=== PATIENT | male | born 1975 | race Two or more races ===

== ENCOUNTER 2019-02-10 21:32 | Emergency (ER) | payer MEDICAID ==
[~2019-02-10] VITALS: Ht 162.6 cm; Wt 95.3 kg
--- NOTE | 2019-02-10 22:46 | NUR ---
BIBSELF C/O BODY PAIN AND L EYE REDNESS. PT HAD SYNCOPE EPIOSODE X1 DAY AGO FELL BACK AND HIT HIS HEAD, TO ER BED 3, VSS AWAITING MED EVAL
[2019-02-10 23:11] LABS: BASOPHILS # (AUTO) 0.1 /CMM (0.0-0.2); BASOPHILS % (AUTO) 1.2 % (0.0-2.0); EOSINOPHILS % (AUTO) 7.4 % (0.0-6.0); HEMATOCRIT 46 % (39-51); HEMOGLOBIN 15.8 g/dL (13.5-17.5); LYMPHOCYTES # (AUTO) 2.1 /CMM (0.8-4.8); MEAN CORPUSCULAR HGB CONC 34 g/dl (31.0-36.0); MEAN CORPUSCULAR VOLUME 85 fL (80-96); MONOCYTES # (AUTO) 0.8 /CMM (0.1-1.30); NEUTROPHILS # (AUTO) 4.9 /CMM (1.8-8.9); NEUTROPHILS % (AUTO) 57.4 % (43.0-81.0); PLATELET COUNT (AUTO) 386 /CMM (150-450); RED BLOOD CELL COUNT(AUTO) 5.45 MIL/uL (4.5-6.0); WHITE BLOOD COUNT (AUTO) 8.5 K/uL (4.3-11.0)
[2019-02-10 23:19] LABS: CALCIUM, SERUM 8.9 mg/dL (8.5-10.1); CARBON DIOXIDE 30 mmol/L (21-32); CHLORIDE 105 mmol/L (98-107); GLUCOSE 128 mg/dL (74-106); POTASSIUM 3.9 mmol/L (3.5-5.1); SODIUM SERUM 141 mmol/L (136-145); UREA NITROGEN, BLOOD 15 mg/dL (7-18)
--- NOTE | 2019-02-11 02:04 | NUR ---
Patient discharged to home in stable condition. Written and verbal after care instructions given. Patient verbalizes understanding of instruction.IV removed. Catheter intact and site benign. Pressure and 4x4 applied to site. No bleeding noted.Pt ambulatory with a steady gait
[2019-02-11 02:05] VITALS: BP 119/80
== END 2019-02-11 02:05 | disposition home or self-care (01) ==
LOC: ER 21:33
DX: S02.40DA Maxillary fracture, left side, initial encounter for closed fracture (principal); S02.85XA Fracture of orbit, unspecified, initial encounter for closed fracture; H11.32 Conjunctival hemorrhage, left eye; F17.200 Nicotine dependence, unspecified, uncomplicated; R55 Syncope and collapse; W07.XXXA Fall from chair, initial encounter; Y93.89 Activity, other specified; Y92.89 Other specified places as the place of occurrence of the external cause; Y99.8 Other external cause status
CPT/HCPCS: 36415; 70450-TC; 72125-TC; 80048-TC; 84484-TC; 85025-TC

== ENCOUNTER 2019-12-07 22:38 | Inpatient (IN) | payer MEDICAID ==
[~2019-12-07] VITALS: Ht 165.1 cm; Wt 95.7 kg
--- NOTE | 2019-12-07 22:47 | NUR ---
CALLED RT FOR BREATHING TX.
[2019-12-07] MEDS ORDERED: IPRATROPIUM NEB FS 0.5 MG/2.5 ML AMPUL.NEB ONE (22:59)
[2019-12-07] MEDS ORDERED: ALBUTEROL FS 2.5 MG/3 ML VIAL.NEB ONE (22:59)
[2019-12-07] MEDS ORDERED: IPRATROPIUM NEB FS 0.5 MG/2.5 ML AMPUL.NEB NEB ONE (23:00)
[2019-12-07] MEDS ORDERED: methylPREDNISolone SOD SUCC 125 MG/2ML VIAL IV ONE (23:00)
[2019-12-07] MEDS ORDERED: ALBUTEROL FS 2.5 MG/3 ML VIAL.NEB NEB ONE (23:00)
--- NOTE | 2019-12-07 23:02 | NUR ---
RT AT BEDSIDE FOR BREATHING TX.
--- NOTE | 2019-12-07 23:05 | NUR ---
CALLED LAB, AWARE BLOOD WAS DRAWN, READY FOR ENERGY AND SUSTAINABILITY MANAGER.
[2019-12-07] MEDS ORDERED: methylPREDNISolone SOD SUCC 125 MG/2ML VIAL ONE (23:06)
--- NOTE | 2019-12-07 23:21 | NUR ---
COVID SWAB COLLECTED AND SENT TO LAB.
[2019-12-07 23:38] LABS: BASOPHILS # (AUTO) 0.1 /CMM (0.0-0.2); BASOPHILS % (AUTO) 0.7 % (0.0-2.0); EOSINOPHILS % (AUTO) 13.6 % (0.0-6.0); HEMATOCRIT 47 % (39-51); HEMOGLOBIN 15.3 g/dL (13.5-17.5); LYMPHOCYTES # (AUTO) 2.1 /CMM (0.8-4.8); LYMPHOCYTES % (AUTO) 14.6 % (20.0-44.0); MEAN CORPUSCULAR HGB CONC 32 g/dl (31.0-36.0); MEAN CORPUSCULAR VOLUME 86 fL (80-96); MONOCYTES # (AUTO) 0.9 /CMM (0.1-1.30); MONOCYTES % (AUTO) 6.3 % (2.0-12.0); NEUTROPHILS # (AUTO) 9.4 /CMM (1.8-8.9); NEUTROPHILS % (AUTO) 64.8 % (43.0-81.0); PLATELET COUNT (AUTO) 462 /CMM (150-450); RED BLOOD CELL COUNT(AUTO) 5.53 MIL/uL (4.5-6.0); WHITE BLOOD COUNT (AUTO) 14.5 K/uL (4.3-11.0)
--- NOTE | 2019-12-07 23:46 | NUR ---
Rebecca gallegos in [facility] - 12/07/19 at 2347 by SELVIN 2ND COVID SWAB AND RSV COLLECTED. SENT TO LAB
[2019-12-07 23:47] LABS: CALCIUM, SERUM 8.2 mg/dL (8.5-10.1); CARBON DIOXIDE 32 mmol/L (21-32); CHLORIDE 101 mmol/L (98-107); GLUCOSE 113 mg/dL (74-106); POTASSIUM 3.9 mmol/L (3.5-5.1); SODIUM SERUM 140 mmol/L (136-145); UREA NITROGEN, BLOOD 17 mg/dL (7-18)
--- NOTE | 2019-12-07 23:47 | NUR ---
2ND COVID SWAB AND RAPID INFLUENZA COLLECTED. SENT TO LAB
[2019-12-08] LABS: ALANINE AMINOTRANSFERASE 22 U/L (12-78); ALBUMIN 3.6 g/dL (3.4-5.0); ALKALINE PHOSPHATASE 129 U/L (46-116); ASPARTATE AMINOTRANSFERASE 20 U/L (15-37); BILIRUBIN,DIRECT 0.1 mg/dL (0.0-0.2); BILIRUBIN,TOTAL 0.2 mg/dL (0.2-1.0)
[2019-12-08 00:04] LABS: B-TYPE NATRIURETIC PEPTIDE 9 PG/ML (0-125)
[2019-12-08 00:05] LABS: CREATINE KINASE, TOTAL 292 U/L (39-308); FERRITIN 88 ng/mL (8-388)
--- NOTE | 2019-12-08 00:08 | NUR ---
NOTED PT 02 SAT ON 2LNC 89%, NO SOB NOTED, NO ACUTE DISTRESS NOTED,PT STATES FEELING BETTER AFTER BREATHING TX, PT PLACED ON 6LPM SIMPLE MASK. 02 SAT IMPROVED TO 97% DR. Roc LUCAS AWARE
[2019-12-08 00:11] LABS: C-REACTIVE PROTEIN 2.4 mg/dL (0.0-0.9)
[2019-12-08] MEDS ORDERED: ALBUTEROL FS 2.5 MG/3 ML VIAL.NEB ONE (00:13)
[2019-12-08] MEDS ORDERED: ALBUTEROL FS 2.5 MG/3 ML VIAL.NEB CONTNEB ONE (00:30)
--- NOTE | 2019-12-08 00:59 | NUR ---
CALLED NURSING SUP FOR BED
--- NOTE | 2019-12-08 01:22 | NUR ---
REPORT CALLED TO TELE ABDULAZIZ WARNER. WILL TRANSPORT PT VIA ACLS PROTOCOL.
[2019-12-08 01:40] VITALS: BP 151/94
--- NOTE | 2019-12-08 01:40 | NUR ---
TELE-1/FOOD COUNTER ATTENDANT RECEIVED PT IN ROOM 102. PT AMBULATED TO BED WITH STEADY GAIT. PT A/Ox4. O2 @ 6L VIA SIMPLE MASK. PT EDUCATED TO ROOM, CALL LIGHT AND PLAN OF CARE. PT VERBALIZED UNDERSTANDING. BED IN LOWEST LOCKED POSITION. SIDE RAILS UP x2. CALL LIGHT WITHIN REACH.
[2019-12-08] MEDS ORDERED: Z GUARD REMEDY 2 OZ OINT TP PRN (02:00)
[2019-12-08] MEDS ORDERED: LORAZEPAM 1 MG TABLET PO PRN (02:00)
[2019-12-08] MEDS ORDERED: HYDROCODONE/APAP 5/325MG TABLET PO PRN (02:00)
[2019-12-08] MEDS ORDERED: ACETAMINOPHEN 325 MG TABLET PO PRN (02:00)
[2019-12-08] MEDS ORDERED: MAGNESIUM HYDROXIDE 30 ML UDC PO PRN (02:00)
[2019-12-08] MEDS ORDERED: ALBUTEROL FS 2.5 MG/0.5 ML VIAL.NEB NEB PRN (02:00)
[2019-12-08] MEDS ORDERED: ONDANSETRON HCL/PF 4 MG/2 ML VIAL IVP PRN (02:00)
[2019-12-08] MEDS ORDERED: MAG HYDROX/AL HYDROX/SIMETH 30 ML UDC PO PRN (02:00)
[2019-12-08] MEDS: ENOXAPARIN SODIUM 40 MG/0.4 ML DISP.SYRIN SQ SCH ×2 (02:39→20:23)
[2019-12-08 04:00] VITALS: BP 132/81
[2019-12-08] MEDS: methylPREDNISolone SOD SUCC 125 MG/2ML VIAL IV SCH ×4 (05:44→23:11)
--- NOTE | 2019-12-08 07:30 | NUR ---
RECEIVED PATIENT IN BED. NO ACUTE DISTRESS NOTED. PATIENT ALERT & ORIENTED X4. PATIENT ON 6L O2 VIA SIMPLE MASK, SATURATING WELL AND BREATHING EVEN AND UNLABORED. PATIENT ON SUPERVISOR BLOOD, SINUS TACHYCARDIA NOTED WITH HEART RATE IN 100S. PATIENT LEFT ANTECUBITAL IV ACCESS INTACT, PATENT, FLUSHED WELL. PATIENT SAFETY MEASURES MAINTAINED. CALL LIGHT WITHIN REACH. WILL CONTINUE TO MONITOR.
[2019-12-08 08:00] VITALS: BP 140/86
[2019-12-08] MEDS ORDERED: ALBU6.7H9 INH (08:39)
[2019-12-08] MEDS ORDERED: GUAI1TBM19 PO (08:39)
[2019-12-08 12:00] VITALS: BP 156/94
[2019-12-08 16:00] VITALS: BP 152/79
--- NOTE | 2019-12-08 18:30 | NUR ---
PATIENT IN BED. NO ACUTE DISTRESS NOTED. PATIENT ALERT & ORIENTED X4. PATIENT ON 6L O2 VIA SIMPLE MASK, SATURATING WELL AND BREATHING EVEN AND UNLABORED. PATIENT ON SCREEN PRINTER HELPER, NORMAL SINUS RHYTHM AND SINUS TACHYCARDIA NOTED WITH HEART RATE IN 90S-100S. PATIENT LEFT ANTECUBITAL IV ACCESS INTACT, PATENT, FLUSHED WELL. PATIENT SAFETY MEASURES MAINTAINED. CALL LIGHT WITHIN REACH. WILL ENDORSE PLAN OF CARE TO ONCOMING NURSE FOR CONTINUITY OF CARE.
--- NOTE | 2019-12-08 20:02 | NUR ---
RECEIVED PATIENT IN BED, AWAKE, CONSCIOUS, A/OX 4, O2 @ 6LPM VIA SIMPLE MASK, UNLABORED BREATHING, NO SIGNS OF RESPIRATORY DISTRESS, SINUS RHYTHM 92 HR, LAC #18G SL, SIDE RAILS UP, WILL MONITOR PATIENT WHOLE SHIFT.
[2019-12-08 20:15] VITALS: BP 145/78
[2019-12-09] VITALS: BP 121/90
[2019-12-09 04:00] VITALS: BP 132/79
[2019-12-09] MEDS: methylPREDNISolone SOD SUCC 125 MG/2ML VIAL IV SCH ×4 (05:07→23:58)
--- NOTE | 2019-12-09 06:39 | NUR ---
MS CLOAK ROOM ATTENDANT CLOSING NOTES ENDORSED PATIENT IN BED, AWAKE, CONSCIOUS, A/OX 4, O2 @ 6LPM VIA SIMPLE MASK, UNLABORED BREATHING, NO SIGNS OF RESPIRATORY DISTRESS, SINUS RHYTHM 77, LAC #18G SL, SIDE RAILS UP X 2, DUE MEDS GIVEN. NO COMPLAINTS OF PAIN WHOLE SHIFT.
[2019-12-09 07:27] LABS: CALCIUM, SERUM 8.9 mg/dL (8.5-10.1); CREATININE 0.8 mg/dL (0.6-1.3); MAGNESIUM 2.6 mg/dL (1.8-2.4); PHOSPHORUS 4.6 mg/dL (2.5-4.9); POTASSIUM 4.5 mmol/L (3.5-5.1)
--- NOTE | 2019-12-09 07:30 | NUR ---
RN OPENING NOTE Patient in bed, A/Ox4, denies pain or discomfort at this moment, receiving O2 via Mask @6L of O2, SPO2 is 96%, no SOB, resp digress noted, relaxed and cooperative. Ambulatory, skin is intact. IV line on L AC noted, intact, patent and flushed well, Patient is on tele-monitor, SR 80s,Safety measures implemented, call light in reach, bed in locked and lowest position position , will cont to monitor
[2019-12-09 07:55] LABS: BASOPHILS % (AUTO) 0.1 % (0.0-2.0); HEMATOCRIT 48 % (39-51); HEMOGLOBIN 15.3 g/dL (13.5-17.5); LYMPHOCYTES # (AUTO) 1.2 /CMM (0.8-4.8); LYMPHOCYTES % (AUTO) 5.3 % (20.0-44.0); MEAN CORPUSCULAR HGB CONC 32 g/dl (31.0-36.0); MEAN CORPUSCULAR VOLUME 87 fL (80-96); MONOCYTES % (AUTO) 4.3 % (2.0-12.0); NEUTROPHILS # (AUTO) 20.9 /CMM (1.8-8.9); NEUTROPHILS % (AUTO) 90.3 % (43.0-81.0); PLATELET COUNT (AUTO) 498 /CMM (150-450); WHITE BLOOD COUNT (AUTO) 23.1 K/uL (4.3-11.0)
[2019-12-09 08:00] VITALS: BP 121/85
[2019-12-09 12:00] VITALS: BP 136/83
[2019-12-09 16:00] VITALS: BP 140/84
--- NOTE | 2019-12-09 18:44 | NUR ---
RN CLOSING NOTE PATIENT REMAINS IN ROOM, TOLERATING TREATMENT WELL NO SOB, COUGH, RESP DISTRESS DURING SHIFT AND AT THIS TIME, SPO2 97%, SR 85-90, DENIES PAIN OR DISCOMFORT,ALL NEEDS ATTENDED,SAFETY MEASURES IN PLACE, WILL ENDORSE TO PM SHIFT RN FOR SPENSER
[2019-12-09 20:00] VITALS: BP 139/94
--- NOTE | 2019-12-09 20:00 | NUR ---
finance advisor note Received pt in bed. awalert alert oriented x4. breathing even and unlabored on 6l of o2 via simple mask .02 sat at 93%. HOB elevated. no distress or discomfort noted. Denies pain. Saline lock #18 G Left ac patent and intact. no s/s of infiltration noted. On tele sinus rhythm HR 89. SR up x2. Call light within reach. All needs rendered. VSS. Will continue to monitor.
[2019-12-09] MEDS: ENOXAPARIN SODIUM 40 MG/0.4 ML DISP.SYRIN SQ SCH (20:27)
[2019-12-10] VITALS: BP 138/95
[2019-12-10 04:00] VITALS: BP 136/76
--- NOTE | 2019-12-10 04:10 | NUR ---
Transportation Logistics Internship note Noted pt with history of prediabetic and also on solumedrol. per DNP jaquan daniel note, pt glucose needs to be monitored. Informed Dr. Eubanks. gave new order. order noted and carried out.
[2019-12-10] MEDS ORDERED: DEXTROSE 50%-WATER 50 ML DISP.SYRIN IV PRN (04:30)
[2019-12-10] MEDS: methylPREDNISolone SOD SUCC 125 MG/2ML VIAL IV SCH ×4 (05:52→23:40)
--- NOTE | 2019-12-10 06:20 | NUR ---
RN closing note Resident in bed, awake, a/o x4. Breathing even and unlabored. On 6L of 02 via mask. tolerating well. No acute distress noted. Sinus rhythm. Congestion and cough noted. Denies any pain or discomfort. LAC #18 saline lock patent. HOB elevated. Call light within reach. All needs rendered. Will endorse to AM nurse for continuity of care.
[2019-12-10 06:46] LABS: HEMATOCRIT 50 % (39-51); HEMOGLOBIN 15.9 g/dL (13.5-17.5); LYMPHOCYTES # (AUTO) 1.1 /CMM (0.8-4.8); LYMPHOCYTES % (AUTO) 5.1 % (20.0-44.0); MEAN CORPUSCULAR HGB CONC 32 g/dl (31.0-36.0); MEAN CORPUSCULAR VOLUME 87 fL (80-96); MONOCYTES # (AUTO) 0.6 /CMM (0.1-1.30); NEUTROPHILS # (AUTO) 19.6 /CMM (1.8-8.9); NEUTROPHILS % (AUTO) 91.9 % (43.0-81.0); PLATELET COUNT (AUTO) 518 /CMM (150-450); RED BLOOD CELL COUNT(AUTO) 5.72 MIL/uL (4.5-6.0); WHITE BLOOD COUNT (AUTO) 21.4 K/uL (4.3-11.0)
[2019-12-10] MEDS: BLOOD SUGAR DIAGNOSTIC 1 EACH STRIP IN SCH ×4 (07:26→21:29)
--- NOTE | 2019-12-10 07:30 | NUR ---
RN OPENING NOTES Patient present in bed, clean, dressed appropriately,cooperative. A/Ox4, denies pain or discomfort at this moment, receiving oxygen via Simple Mask at 6L of O2, SPO2 readings is 94%, no SOB, resp distress noted at this time,. Patient is ambulatory,using bathroom, skin is intact. IV line on L AC saline lock, intact, patent and flushed well, dressing is clean, Patient is on tele-monitor, SR 83s. Safety measures implemented, call light in reach, bed in locked and lowest position position , will cont to monitor closely
[2019-12-10] MEDS: INSULIN REGULAR, HUMAN 100 UNIT/ML 3 ML VIAL SQ PRN ×4 (07:36→21:30)
--- NOTE | 2019-12-10 07:45 | NUR ---
Refused insulin, blood sugar 159
[2019-12-10 08:00] VITALS: BP 134/86
[2019-12-10 08:28] LABS: CALCIUM, SERUM 9.3 mg/dL (8.5-10.1); CREATININE 0.8 mg/dL (0.6-1.3); MAGNESIUM 2.8 mg/dL (1.8-2.4); PHOSPHORUS 5.6 mg/dL (2.5-4.9); POTASSIUM 5.4 mmol/L (3.5-5.1)
--- NOTE | 2019-12-10 10:00 | NUR ---
* Call Light In Reach * Bed Low * Side Rail Up As Appropriate * No S/S Of Distress Noted * Needs Attended
[2019-12-10 12:00] VITALS: BP 135/88
--- NOTE | 2019-12-10 12:42 | NUR ---
REFUSED INSULIN, BLOOD SUGAR 213, EDUCATION PROVIDED
[2019-12-10 12:45] LABS: ABG BASE EXCESS 4.2 mmol/L; ABG OXYGEN SATURATION 95.2 % (92.0-98.5); ABG PCO2 53.7 mmHg (35.0-45.0); ABG PH 7.379 (7.350-7.450); ABG PO2 76.8 mmHg (75.0-100.0); COHb 0.4 % (0.5-1.5); MetHb 0.3 % (0.0-1.5); O2Hb 94.5 % (94.0-97.0); SITE, ABG Left Brachial; VENT MODE, BG SM
--- NOTE | 2019-12-10 14:00 | NUR ---
* Call Light In Reach * Bed Low * Side Rail Up As Appropriate * No S/S Of Distress Noted * Needs Attended
[2019-12-10 16:00] VITALS: BP 146/81
--- NOTE | 2019-12-10 17:30 | NUR ---
Refused insulin , blood sugar 147
--- NOTE | 2019-12-10 17:54 | NUR ---
patient remains in the bed,, Call Light In Reach,Bed Low, Side Rail Up As Appropriate, No S/S Of Distress Noted, tolerating mask and O2 flow well, able to ambulate, Needs Attended, cont to monitor
--- NOTE | 2019-12-10 18:45 | NUR ---
RN CLOSING NOTE patient remains in the room,cooperative, clean, dress appropriate . Denies pain or discomfort, Tolerating treatment and O2 therapy well, no SOB or cough, or resp distress noted now or during the shift, SPO2 uis 96%, SR 83-86, All medications given, comfort needs attended, bed in lowest position, call light in reach, will endorse to PM shift RN for SPENSER
--- NOTE | 2019-12-10 19:33 | NUR ---
SOFTBALL COACH OPENING NOTES: Rec'd pt in bed, A&Ox4. On 6LPM mask, tolerating well. No SOB or resp distress noted. SR on tele monitor. Pt ambulatory to bathroom. LAC #18 patent and flushed. Dressing c/d/i. Safety measures in place. Will continue to monitor.
[2019-12-10 20:00] VITALS: BP 151/94
[2019-12-10] MEDS: ENOXAPARIN SODIUM 40 MG/0.4 ML DISP.SYRIN SQ SCH (21:21)
--- NOTE | 2019-12-10 21:31 | NUR ---
RN NOTES: Pt refused insulin per sliding scale for BS 186. Explained risks and benefits x3 and continued refusal. Stated "if my sugar is above 200 then I will take the insulin." Will continue to monitor.
[2019-12-11] VITALS: BP 135/88
[2019-12-11 04:00] VITALS: BP 109/70
[2019-12-11] MEDS: methylPREDNISolone SOD SUCC 125 MG/2ML VIAL IV SCH ×4 (05:53→23:50)
[2019-12-11 06:19] LABS: BASOPHILS % (AUTO) 0.1 % (0.0-2.0); HEMATOCRIT 54 % (39-51); HEMOGLOBIN 17.3 g/dL (13.5-17.5); LYMPHOCYTES # (AUTO) 1.1 /CMM (0.8-4.8); LYMPHOCYTES % (AUTO) 5.4 % (20.0-44.0); MEAN CORPUSCULAR HGB CONC 32 g/dl (31.0-36.0); MEAN CORPUSCULAR VOLUME 87 fL (80-96); MONOCYTES # (AUTO) 0.6 /CMM (0.1-1.30); NEUTROPHILS # (AUTO) 18.9 /CMM (1.8-8.9); NEUTROPHILS % (AUTO) 91.5 % (43.0-81.0); PLATELET COUNT (AUTO) 547 /CMM (150-450); RED BLOOD CELL COUNT(AUTO) 6.19 MIL/uL (4.5-6.0); WHITE BLOOD COUNT (AUTO) 20.6 K/uL (4.3-11.0)
--- NOTE | 2019-12-11 06:42 | NUR ---
JEWELRY INSPECTOR CLOSING NOTES: Pt remained stable throughout shfit. No acute changes noted. Remains on 6LPM mask. No SOB or resp distress noted throughout shift. SR/SB on tele monitor. LAC #18 patent and flushed. Dressing c/d/i. All meds administered as ordered. Safety measures in place. Will endorse to AM nurse for SPENSER.
[2019-12-11 06:57] LABS: CALCIUM, SERUM 9.2 mg/dL (8.5-10.1); CREATININE 0.9 mg/dL (0.6-1.3); MAGNESIUM 2.9 mg/dL (1.8-2.4); PHOSPHORUS 5.6 mg/dL (2.5-4.9); POTASSIUM 4.9 mmol/L (3.5-5.1)
[2019-12-11] MEDS: BLOOD SUGAR DIAGNOSTIC 1 EACH STRIP IN SCH ×4 (07:29→21:10)
--- NOTE | 2019-12-11 07:35 | NUR ---
RN OPENING NOTES Received patient in bed, A/Ox 4, cooperative, clean, dress appropriate, receiving O2 therapy via simple mask at 6L, SPO2 is 96%,tolerating well no SOB, resp distress noted. Patient is able to ambulate and eat without mask without changes in SPO2 level for 10-15 min. IV line noted on L Ac, intact, flushed and patent, dressing site is clean. Patient is ambulatory, skin is intact. Regular diet ordered, weight is 215 l. safety measures in place, bed locked, in lowest position, call light in reach, will cont to monitor
[2019-12-11] MEDS: INSULIN REGULAR, HUMAN 100 UNIT/ML 3 ML VIAL SQ PRN ×4 (07:38→21:17)
[2019-12-11 08:00] VITALS: BP 130/87
--- NOTE | 2019-12-11 10:15 | NUR ---
Titrated O2 to 4.0 L via NC, O2 sensor placed will monitor SPO2 closely, charge nurse notified
--- NOTE | 2019-12-11 10:31 | NUR ---
SPO2 is 96%, tolerating well, no SOB, cough, no distress noted or reported by patient , cont to monitor
[2019-12-11 12:00] VITALS: BP 124/85
--- NOTE | 2019-12-11 12:02 | NUR ---
Titrated O2 to 3L via NC, tolerating well no SOB, no cough, no distress noted or reported by patient , SPO2 93-94%
[2019-12-11 16:00] VITALS: BP 117/87
--- NOTE | 2019-12-11 16:47 | NUR ---
PATIENT ROOM AUIR SAT AT REST86%,PLACED BACK ON OXYGEN 3L SAT IMPROVES TO 94%.
--- NOTE | 2019-12-11 19:38 | NUR ---
RN CLOSING NOTE Patient in the room, in bed, ambulating ,cooperative, clean, dress appropriate . Denies pain or discomfort during the shift and at this time, Tolerating treatment and NC O2 @ 4L therapy well with SPO2 98%, no SOB or cough, or resp distress noted now or during the shift,Tele*monitor SR 80s, All medications given, comfort needs attended, bed in lowest position, call light in reach, will endorse to PM shift RN for SPENSER
--- NOTE | 2019-12-11 19:39 | NUR ---
RN OPENING NOTE RECEIVED PATIENT IN BED RESTING ALERT ORIENTED X4 VERBALLY RESPONSIVE,ABLE TO MAKE NEEDS KNOWN,FULL CODE/ON TELE MONITORING ON 4L/MIN O2 VIA NASAL CANNULA, 94% NO SOB NOT ACUTE DISTRESS AT THIS TIME,IV SITE IS ON LEFT AC INTACT PATENT,AMBULATORY,CONTINENT TO BOWEL AND BLADDER,CALL LIGHT WITHIN REACH,BED LOCKED IN LOW POSITION CONTINUE TO MONITOR.
[2019-12-11 20:00] VITALS: BP 129/86
[2019-12-11] MEDS: ENOXAPARIN SODIUM 40 MG/0.4 ML DISP.SYRIN SQ SCH (20:23)
[2019-12-12 00:01] VITALS: BP 136/86
[2019-12-12 04:00] VITALS: BP 123/88
[2019-12-12] MEDS: methylPREDNISolone SOD SUCC 125 MG/2ML VIAL IV SCH (05:13)
[2019-12-12 06:27] LABS: BASOPHILS % (AUTO) 0.2 % (0.0-2.0); HEMATOCRIT 55 % (39-51); HEMOGLOBIN 17.6 g/dL (13.5-17.5); LYMPHOCYTES # (AUTO) 1.1 /CMM (0.8-4.8); LYMPHOCYTES % (AUTO) 5.3 % (20.0-44.0); MEAN CORPUSCULAR HGB CONC 32 g/dl (31.0-36.0); MEAN CORPUSCULAR VOLUME 87 fL (80-96); MONOCYTES # (AUTO) 0.6 /CMM (0.1-1.30); NEUTROPHILS # (AUTO) 18.1 /CMM (1.8-8.9); NEUTROPHILS % (AUTO) 91.5 % (43.0-81.0); PLATELET COUNT (AUTO) 502 /CMM (150-450); RED BLOOD CELL COUNT(AUTO) 6.32 MIL/uL (4.5-6.0); WHITE BLOOD COUNT (AUTO) 19.8 K/uL (4.3-11.0)
--- NOTE | 2019-12-12 06:33 | NUR ---
RN CLOSING NOTE PATIENT REMAINS IN ALERT ORIENTED X4 VERBALLY RESPONSIVE FULL CODE ON TELE MONITORING NO SOB NOT ACUTE DISTRESS NOTED,ON 4L OXYGEN VIA NASAL CANNULA,O2:96% IV SITE IS ON LEFT AC INTACT PATENT,ALL DUE MEDS GIVEN MD ORDERED,KEPT CLEAN AND DRY ALL THE TIME,KEPT CALL LIGHT WITHIN REACH,ALL NEEDS MET,ENDORSE NEXT COMING SHIFT FOR CONTINUATION OF CARE.
[2019-12-12 06:49] LABS: CALCIUM, SERUM 8.9 mg/dL (8.5-10.1); CREATININE 0.9 mg/dL (0.6-1.3); MAGNESIUM 2.8 mg/dL (1.8-2.4); PHOSPHORUS 4.7 mg/dL (2.5-4.9)
--- NOTE | 2019-12-12 07:37 | NUR ---
RN OPENING NOTES: RECIEVED PT IN BED AWAKE A/O X4, NO COMPLAINS OF ANY SOB, DIFFICULTY BREATHING OR PAIN. PT IS ON NC 4L, TOLERATING WELL, IV INTACT FLUSHED WELL. ALL PATIENT SAFETY MEASURES MAINTAINED, CALL LIGHT WITHIN REACH WILL CONTINUE TO MONITOR.
[2019-12-12 08:00] VITALS: BP 117/88
[2019-12-12] MEDS: BLOOD SUGAR DIAGNOSTIC 1 EACH STRIP IN SCH ×2 (08:02→13:23)
[2019-12-12] MEDS: INSULIN REGULAR, HUMAN 100 UNIT/ML 3 ML VIAL SQ PRN (08:15)
--- NOTE | 2019-12-12 08:38 | NUR ---
RN OPENING NOTES: RECEIVED PT IN BED AWAKE A/3, PT IS ON RA SATURATING WELL. NO COMPLAINS OF ANY SOB, DIFFICULTY ,BREATHING, COMPLAIN OF PAIN 11/04 MEDICATION WAS ADMIN. LAB CALLED POTASSIUM LEVEL 2.7. PTS SAFETY AND COMFORT MEASURES MAINTAINED, CALL LUIGHT WITHIN REACH WILL CONTINUE TO MONITOR.
[2019-12-12 12:00] VITALS: BP 123/80
[2019-12-12] MEDS ORDERED: METH4TAB3 PO (13:45)
[2019-12-12] MEDS ORDERED: LEVO750T21 PO (13:45)
--- NOTE | 2019-12-12 15:00 | NUR ---
TRUCK BODY BUILDER APPRENTICE/PIERRE NOTE BEDSIDE REPORT GIVEN BY NURSE ROMERO. RECEIVED PT IN STABLE CONDITION. WILL CONTINUE PLAN OF CARE. NO ACUTE DISTRESS OR DISCOMFORT NOTED AT THIS TIME. PT IS AWAKE, ALERT AND ORIENTED X4 AND ABLE TO MAKE HIS NEEDS KNOWN. PT DENIES PAIN OR DISCOMFORT AT THIS TIME. PT IS ON OXYGEN 2L VIA N/C SATURATING AT 99% AT THIS TIME. PT IS BEING D/C. WILL CONTINUE TO MONITOR AND ASSESS PT.
--- NOTE | 2019-12-12 16:00 | NUR ---
TECHNICAL OPERATIONS VICE PRESIDENT/PIERRE DISCHARGE NOTE PT WAS D/C VIA WHEELCHAIR IN STABLE CONDITION. NO ACUTE DISTRESS OR SOB NOTED. PT LEFT WITH D/C PAPERS PER FACILITY PROTOCOL. PT LEFT WITH HIS BELONGINGS AND OXYGEN. NO COMPLAINTS OF PAIN OR DISCOMFORT WHILE LEAVING. IV REMOVED. PT LEFT FACILITY IN STABLE CONDITION. CHARGE NURSE AWARE OF DISCHARGE.
== END 2019-12-12 16:00 | disposition home or self-care (01) | DRG 141 ==
LOC: ER 22:38 → TELE1 12-08 01:13 → MEDSG1 12-12 08:00
PROVIDERS: ADMIT Nurse Practitioner Acute Care; ATTEND Hospitalist
DX: J45.901 Unspecified asthma with (acute) exacerbation (principal); J96.01 Acute respiratory failure with hypoxia; F17.200 Nicotine dependence, unspecified, uncomplicated; D72.829 Elevated white blood cell count, unspecified; R74.0 Nonspecific elevation of levels of transaminase and lactic acid dehydrogenase [LDH]; E66.9 Obesity, unspecified; E78.5 Hyperlipidemia, unspecified; E87.3 Alkalosis; E87.5 Hyperkalemia; J96.02 Acute respiratory failure with hypercapnia; D47.3 Essential (hemorrhagic) thrombocythemia; R73.03 Prediabetes; J20.9 Acute bronchitis, unspecified; J98.11 Atelectasis; J18.9 Pneumonia, unspecified organism; Z68.35 Body mass index [BMI] 35.0-35.9, adult
CPT/HCPCS: 36415; 36600; 71045-TC; 80048-TC; 80076-TC; 82550-TC; 82728-TC; 82962-TC; 83615-TC; 83735-TC; 83880; 84100-TC; 84484-TC; 85025-TC; 85378-TC; 86140-TC; 87070-TC; 87081-TC; C9803-CS; G0378; J1650; J1815; J2930; U0003-CS